=== PATIENT | female | born 1995 | race African-American/Black ===

== ENCOUNTER 2023-10-05 16:47 | Emergency (ER) | payer SELFPAY ==
[~2023-10-05] VITALS: Ht 170.2 cm; Wt 118.2 kg
[2023-10-05 17:39] VITALS: BP 101/49; PULSE 90; O2SAT 100
[2023-10-05 18:27] VITALS: RESP 14
[2023-10-05] MEDS: HYDROcodone/acetaminophen 10/325mg tab PO ONE (18:27)
[2023-10-05] MEDS: CefTRIAXone 1000mg IM Kit (w/lidocaine diluent) IM ONE (18:27)
[2023-10-05] MEDS: ketorolac trometh. 30mg/ml inj. IM ONE (18:27)
[2023-10-05] MEDS: ondansetron 4mg rapidly disintigrating tab PO ONE (18:27)
[2023-10-05] MEDS ORDERED: HYDR-3965 PO (19:05)
[2023-10-05] MEDS ORDERED: SULF1TAB49 PO (19:05)
[2023-10-05 19:10] VITALS: TEMP 98.5
== END 2023-10-05 19:20 | disposition home or self-care (01) ==
LOC: ER 16:48
DX: K61.1 Rectal abscess (principal); Z79.899 Other long term (current) drug therapy
CPT/HCPCS: 96372; 99284; J0696; J1885